=== PATIENT | female | born 1995 | race Caucasian/White ===

== ENCOUNTER 2025-01-10 15:57 | Emergency (ER) | payer BC, SELFPAY ==
[2025-01-10 16:23] VITALS: BP 137/78; PULSE 85; RESP 16; TEMP 36.4; O2SAT 100
--- NOTE | 2025-01-10 16:25 | ED.EAR ---
HPI - Ear Problem General Chief complaint: Ear Stated complaint: right ear pain Source: patient and RN notes reviewed Mode of arrival: ambulatory Limitations: no limitations History of Present Illness HPI Narrative: 29-year-old female presents [facility] complaining of right ear pain for 4 days. Patient reports he was recently treated for otitis media to her right ear through her PCP and was prescribed a Medrol Dosepak and Z-Mic. Patient completed medicine and reports having ear pain returning to her right side. Patient reports also feeling like there is fluid behind her right ear. Patient denies any other upper respiratory symptoms. Patient denies any fevers, chills, body aches, dizziness, or any other symptoms. Patient says she has been having frequent ear problems and sinus issues and is supposed to see an ENT in January. Patient takes daily allergy medicines and nasal spray to help with her symptoms as well. Related Data Home Medications Medication Instructions Recorded Confirmed Last Taken Type propranolol 10 mg tablet mg 01/10/25 Unknown History Allergies Allergy/AdvReac Type Severity Reaction Status Date / Time Penicillins Allergy Intermediate Hives Verified 01/10/25 16:18 Review of Systems Review of Systems: CONSTITUTIONAL: Denies fever, chills, body aches, or sweats. EYES: Denies visual changes, redness, or discharge. ENT: Denies rhinorrhea, congestion, sore throat. Positive for otalgia. CARDIOVASCULAR: Denies chest pain, palpitations, or edema. RESPIRATORY: Denies cough or dyspnea. GASTROINTESTINAL: Denies abdominal pain, nausea, vomiting, or diarrhea. GENITOURINARY: Denies dysuria or hematuria. SKIN: Denies rash or itching. MUSCULOSKELETAL: Denies back pain, joint pain, or myalgia. NEUROLOGIC: Denies headache, numbness, or weakness. PSYCHIATRIC: Denies anxiety or depression. All other systems reviewed are negative, except as documented in HPI. PMFSH Comments At the time of my signature, I reviewed and agree with the nursing past medical, surgical, social, and family history. There is no relevant family history pertinent to the patient complaint. Exam Narrative: GENERAL: This is a well-nourished, well-developed adult, in no apparent distress. They are non ill-appearing, nontoxic appearing. HEAD: normocephalic, atraumatic. EYES: Sclera clear/white. Conjunctiva normal. Vision is grossly intact. Extraocular movements intact EARS: External ears normal, auditory canals clear and without drainage, TMs normal without perforation. Hearing grossly intact. NOSE: External nose normal with no obvious nasal discharge, nasal turbinates without redness, no rhinorrhea. THROAT: Mucous membranes moist, posterior pharynx clear, without erythema or swelling. Uvula midline. NECK: Neck supple, non-tender without lymphadenopathy, masses or thyromegaly. CARDIOVASCULAR: Regular rate and rhythm without murmurs, gallops, or rubs. RESPIRATORY: Clear to auscultation. Breath sounds equal bilaterally. No wheezes, rales, or rhonchi. SKIN: warm, Dry, intact with no suspicious lesions or rash, good texture and turgor. NEURO: awake, alert, and oriented to person, place and time. There were no obvious focal neurologic abnormalities. EXTREMITIES: No joint tenderness, effusion, or edema noted. BACK: Nontender without deformity. No CVA tenderness. Course Course Emergency Course: Portions of this record may have been created with voice recognition software Level of Care: Express [facility] Visit Vital Signs Vital signs: Vital Signs Temperature 97.5 F L 01/10/25 16:23 Pulse Rate 85 01/10/25 16:23 Respiratory Rate 16 01/10/25 16:23 Blood Pressure 137/78 01/10/25 16:23 Pulse Oximetry 100 01/10/25 16:23 Oxygen Delivery Room Air 01/10/25 16:23 Temperature 97.5 F L 01/10/25 16:23 Pulse Rate 85 01/10/25 16:23 Respiratory Rate 16 01/10/25 16:23 Blood Pressure 137/78 01/10/25 16:23 Pulse Oximetry 100 01/10/25 16:23 Oxygen Delivery Room Air 01/10/25 16:23 Reviewed Medical Decision Making MDM Narrative Medical decision making narrative: It appears patient's right ear infection has resolved completely. No evidence of infection or chronic effusion to right TM. Advised patient to follow-up with ENT. Discussed physical exam findings. Advised supportive measures and signs/symptoms to go to the ER. Pt is appropriate for outpt treatment and f/u. Vital Signs Vital Signs: Vital Signs Temperature 97.5 F L 01/10/25 16:23 Pulse Rate 85 01/10/25 16:23 Respiratory Rate 16 01/10/25 16:23 Blood Pressure 137/78 01/10/25 16:23 Pulse Oximetry 100 01/10/25 16:23 Oxygen Delivery Room Air 01/10/25 16:23 Temperature 97.5 F L 01/10/25 16:23 Pulse Rate 85 01/10/25 16:23 Respiratory Rate 16 01/10/25 16:23 Blood Pressure 137/78 01/10/25 16:23 Pulse Oximetry 100 01/10/25 16:23 Oxygen Delivery Room Air 01/10/25 16:23 Critical Care Time Critical Care Time Critical Care Time: No Discharge Plan Discharge Clinical Impression: Ear pain, right Patient Disposition: Home Condition: Stable Instructions: Earache (ED) Additional Instructions: There is no evidence of infection to ear. You may take Tylenol or ibuprofen as needed for pain. Continue using your Flonase and Zyrtec for congestion. You may consider using azelastine or cromolyn nasal spray to help with congestion and allergy symptoms. You may do sinus rinses 3 times a day with saline packet that luke warm distilled water. Follow-up with ENT in January as scheduled. Follow-up with PCP in 7-10 days. If you develop fevers, discharge, worsening pain, or any other concerns return to [facility] go to the ER. Patient Language: Salvadorean Prescriptions: No Action propranolol 10 mg tablet Follow-up/Referrals: UNKNOWN,DOCTOR [Primary Care Provider] - Time of Disposition: 16:28
== END 2025-01-10 16:33 | disposition home or self-care (01) ==
DX: H92.01 Otalgia, right ear (principal)
CPT/HCPCS: 99202; G0463

== ENCOUNTER 2025-05-07 16:32 | Emergency (ER) | payer BC, SELFPAY ==
[2025-05-07 16:39] VITALS: BP 142/85; PULSE 95; RESP 20; TEMP 36.7; O2SAT 100
[2025-05-07 16:54] LABS: EDSTREPNEGPOS1 Negative (Negative)
[2025-05-07 16:57] LABS: EDCOVIDSCREEN Negative (Negative); EDINFLUASCREEN Negative (Negative); EDINFLUBSCREEN Negative (Negative)
--- OUTSIDE RECORDS SUMMARY | 2025-05-07 17:20 | XMS_ITS | Patient Health Record ---
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 Instructor Name Role Phone ARNOLD BAEZA [phone] Allergies Allergen (clinical drug ingredient) Drug/Non Drug Allergy documented on EMR Reaction Allergy Type Onset Date Status Rocephin Unknown Drug Allergy Active Penicillin Unknown Drug Allergy Active Reason For Referral No Information Medications Medication SIG (Take, Route, Frequency, Duration) Notes Start Date End Date Status Quetiapine Fumarate 50 MG 1 tablet at be dtime Orally Once a day Active Propranolol HCl 10 MG 1 tablet Orally Once a day Active BuPROPion HCl Active Azelastine & Fluticasone Active Aripiprazole 2 MG 1 tablet Orally Once a day Active Sertraline HCl 200 MG 1 capsule Orally O nce a day Active Social History Tobacco Use: Social History Observation Description Date Details (start date - stop date) Never Smoker NA - NA Tobacco Status: Question Answer Notes Patient is a never smoker Plan Of Treatment No Information Insurance Providers Payer Name Payer Address Payer Phone Subscriber Number Group Number Insured Name Patient Relationship to Insured Coverage Start Date Coverage End Date [employer] [address] [place], [place] [id number] NATIVIDADENRIQUETA Self - patient is the insured Medical (General) History Medical History History ICD Code Mitral valve prolapse High cholesterol Surgical History Surgery Date(Month/Year) section ([id number]) 2020 Excision of fibroadenoma of breast (6999 [id number]) 2012 Hospitalization History Reason Date(Month/Year) see above
--- NOTE | 2025-05-07 17:28 | ED.GENADULT ---
HPI - General Adult General Chief complaint: Upper Respiratory Infection Stated complaint: Sore Throat/Nasal Congestion/Vomiting Source: patient Mode of arrival: ambulatory Limitations: no limitations History of Present Illness HPI narrative: Patient presents for evaluation of sick symptoms for last 2 days. Symptoms include sore throat, bilateral otalgia, sinus congestion, clear rhinorrhea, and cough. Today she had one episode of vomiting. No fever, chills, shortness of breath or diarrhea. She has not been taking any medications to assist with her symptoms. 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 She does not smoke. She has had ear infections in the past and this feels similar. Related Data Home Medications ?Medication ?Instructions ?Recorded ?Confirmed ?Last Taken ?Type propranolol 10 mg tablet mg 01/10/25 Unknown History albuterol sulfate 90 mcg/actuation inhalation 05/07/25 Unknown History aerosol inhaler (Ventolin HFA) aripiprazole 10 mg tablet mg 05/07/25 Unknown History atogepant 60 mg tablet (Qulipta) mg 05/07/25 Unknown History atorvastatin 10 mg tablet mg 05/07/25 Unknown History beclomethasone dipropionate 80 inhalation 05/07/25 Unknown History mcg/actuation HFA breath activated aerosol (Qvar RediHaler) escitalopram oxalate 20 mg tablet mg 05/07/25 Unknown History topiramate 100 mg tablet mg 05/07/25 Unknown History trazodone 50 mg tablet mg 05/07/25 Unknown History Allergies Allergy/AdvReac Type Severity Reaction Status Date / Time Penicillins Allergy Intermediate Hives Verified 05/07/25 16:42 Review of Systems Review of Systems: CONSTITUTIONAL: Denies fever, chills, or sweats. EYES: Denies visual changes, redness, or discharge. ENT: Reports sinus congestion, clear nasal drainage, sore throat, bilateral otalgia CARDIOVASCULAR: Denies chest pain, palpitations, or edema. RESPIRATORY: Reports cough. Denies shortness of breath. GASTROINTESTINAL: Denies abdominal pain, nausea, vomiting, or diarrhea. GENITOURINARY: Denies dysuria or hematuria. SKIN: Denies rash or itching. MUSCULOSKELETAL: Denies back pain, joint pain, or myalgia. NEUROLOGIC: Denies headache, numbness, dizziness, or weakness. PSYCHIATRIC: Denies anxiety or depression. 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 HEAD: Normocephalic, atraumatic. EYES: PERRLA and EOMI. ENT: Nares clear, no rhinorrhea or epistaxis. Mucous membranes moist. Oropharynx without tonsillar hypertrophy exudate or other lesions. There is scarring of both tympanic membranes. Right tympanic membrane is erythematous with an effusion present NECK: Supple. No adenopathy or masses. No carotid bruits or JVD CHEST: Clear to auscultation. No respiratory distress. No wheezes rales or rhonchi HEART: Regular rate and rhythm. No murmur heard. Normal peripheral pulses. ABDOMEN: Soft, nontender, nondistended, normal active bowel sounds. EXTREMITIES: Normal range of motion. No edema. SKIN: Warm, dry, no rash. NEURO: No focal deficits. Alert and oriented x3. PSYCH: Normal mood and affect. Course Course Emergency Course: This is a 29-year-old female who presented for evaluation of sick symptoms. Strep, COVID, influenza were negative. She has evidence of otitis media on exam. Will discharge with cefdinir. She indicates she can tolerate cephalosporins. She ready has Zofran at home. Follow up with primary provider. Go to the ER for worsening symptoms. Patient in agreement with plan of care. Level of Care: Express Care Visit Vital Signs Vital signs: Vital Signs Temperature 36.7 C 05/07/25 16:39 Pulse Rate 95 05/07/25 16:39 Respiratory Rate 20 05/07/25 16:39 Blood Pressure 142/85 H 05/07/25 16:39 Pulse Oximetry 100 05/07/25 16:39 Oxygen Delivery Room Air 05/07/25 16:39 Temperature 36.7 C 05/07/25 16:39 Pulse Rate 95 05/07/25 16:39 Respiratory Rate 20 05/07/25 16:39 Blood Pressure 142/85 H 05/07/25 16:39 Pulse Oximetry 100 05/07/25 16:39 Oxygen Delivery Room Air 05/07/25 16:39 Medical Decision Making Vital Signs Vital Signs: Vital Signs Temperature 36.7 C 05/07/25 16:39 Pulse Rate 95 05/07/25 16:39 Respiratory Rate 20 05/07/25 16:39 Blood Pressure 142/85 H 05/07/25 16:39 Pulse Oximetry 100 05/07/25 16:39 Oxygen Delivery Room Air 05/07/25 16:39 Temperature 36.7 C 05/07/25 16:39 Pulse Rate 95 05/07/25 16:39 Respiratory Rate 05/07/25 16:39 Blood Pressure 142/85 H 05/07/25 16:39 Pulse Oximetry 100 05/07/25 16:39 Oxygen Delivery Room Air 05/07/25 16:39 Lab Data Labs: Lab Results 05/07/25 05/07/25 Range/Units 16:50 16:53 POC Influenza A Ag Negative (Negative) POC Influenza B Ag Negative (Negative) POC SARS CoV-2 Ag Negative (Negative) POC Grp A Strep Screen Negative (Negative) Discharge Plan Discharge Clinical Impression: Otitis media Patient Disposition: Home Condition: Stable Instructions: Antibiotic Form, Ear Infection (ED) Patient Language: [place] Citizen Prescriptions: New cefdinir 300 mg capsule 300 mg PO Q12H Qty: 20 0RF No Action trazodone 50 mg tablet atorvastatin 10 mg tablet albuterol sulfate [Ventolin HFA] 90 mcg/actuation HFA aerosol inhaler INHALATION topiramate 100 mg tablet escitalopram oxalate 20 mg tablet aripiprazole 10 mg tablet Qvar RediHaler 80 mcg/actuation HFA aerosol breath activated INHALATION Qulipta 60 mg tablet propranolol 10 mg tablet Follow-up/Referrals: Yaniv Cid MD [Physician, Family Practice] Stand Alone Forms: Work/School Release IP Time of Disposition: 17:27
== END 2025-05-07 17:34 | disposition home or self-care (01) ==
PROVIDERS: Emergency Provider Nurse Practitioner
DX: H66.91 Otitis media, unspecified, right ear (principal); Z20.822 Contact with and (suspected) exposure to COVID-19; E78.5 Hyperlipidemia, unspecified; F41.9 Anxiety disorder, unspecified; F32.A Depression, unspecified
CPT/HCPCS: 87081; 87426; 87804; 87880; 99213; G0463

== ENCOUNTER 2025-07-01 16:24 | Emergency (ER) | payer BC, SELFPAY ==
--- NOTE | ~2025-07-01 | XR_ITS ---
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 COMPARISON: No comparisons available. Findings: No acute fracture or malalignment. No significant degenerative changes. Soft tissues unremarkable. Impression: No acute fracture or malalignment. Reviewed, dictated and finalized at location P. ME PL[employer] HELPER Impression: No acute fracture or malalignment.
--- OUTSIDE RECORDS SUMMARY | 2025-07-01 16:28 | XMS_ITS | Patient Health Record ---
Author Organization [facility] Andreas silver[facility] Billing Info Address [address] [place] [address] [place] [address] Care Team Providers Care Creative/Art Director Name Role Phone ARNOLD BAEZA [phone] Allergies Allergen (clinical drug ingredient) Drug/Non Drug [...] Insured Coverage Start Date Coverage End Date [place] P[place] [address] [place], [place] [id number] NATIVIDADENRIQUETA Self - patient is the insured Medical (General) History Medical History History ICD Code Mitral valve prolapse High cholesterol Surgical History Surgery Date(Month/Year) section ([id number]) 2020 Excision of fibroadenoma of breast (6999 0006) 2012 Hospitalization History Reason Date(Month/Year) see above
[2025-07-01 16:38] VITALS: BP 137/70; PULSE 73; RESP 20; TEMP 36.6; O2SAT 98
--- NOTE | 2025-07-01 17:23 | ED.LOWEXIN ---
HPI - Extremity Injury (Lower) General Chief Complaint: Extremity Injury, Lower Stated Complaint: L foot xray Time Seen by Provider: 07/01/25 17:23 Source: patient, RN notes reviewed and old records reviewed Mode of arrival: ambulatory Limitations: no limitations History of Present Illness HPI Narrative: 29-year-old female presents to the [facility] requesting a foot x-ray. Reports pain to the lateral foot. Tenderness over metatarsals for 5. Denies injury No swelling. Full range of motion. Positive pedal pulse. Related Data Home Medications ?Medication ?Instructions ?Recorded ?Confirmed ?Last Taken ?Type propranolol 10 mg tablet mg 01/10/25 Unknown History albuterol sulfate 90 mcg/actuation inhalation 05/07/25 Unknown History aerosol inhaler (Ventolin HFA) aripiprazole 10 mg tablet mg 05/07/25 Unknown History atorvastatin 10 mg tablet mg 05/07/25 Unknown History beclomethasone dipropionate 80 inhalation 05/07/25 Unknown History mcg/actuation HFA breath activated aerosol (Qvar RediHaler) escitalopram oxalate 20 mg tablet mg 05/07/25 Unknown History topiramate 100 mg tablet mg 05/07/25 Unknown History trazodone 50 mg tablet mg 05/07/25 Unknown History aripiprazole 2 mg tablet mg 07/01/25 Unknown History Allergies Allergy/AdvReac Type Severity Reaction Status Date / Time Penicillins Allergy Intermediate Hives Verified 07/01/25 16:47 Review of Systems Review of Systems: All systems reviewed & are unremarkable except as noted in HPI and below Constitutional: Constitutional: Reports no additional constitutional complaints ENT: Reports system reviewed and no additional complaints, except as documented Cardiovascular: Cardiovascular: Reports no additional cardiovascular complaints, Denies chest pain and Denies dyspnea Musculoskeletal: Musculoskeletal: Reports as per HPI Integumentary/Breasts: Skin/Breast: Reports system reviewed and no additional complaints, except as docu PMFSH Past Medical History Medical History Hyperlipidemia Depression Anxiety Surgical History Surgical History History of History of dilatation and curettage Family History Family History Mother Family history non-contributory Social History Social History Smoking status: Never smoker Substance use: never 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 There is no relevant family history pertinent to the patient complaint. Exam Const: General: cooperative, healthy appearing, comfortable, no acute distress, well developed, alert and well nourished Nutritional Appearance: well nourished and obese Orientation/consciousness: patient oriented x3 Limitations: no limitations HENMT: Head: normal to inspection Eyes: General: appearance normal, both eyes and all related structures Alignment and Position: alignment normal Neck: Neck: normal visual inspection, full ROM, no lymphadenopathy and no meningeal signs Chest: Chest palpation & inspection: normal inspection of the chest Resp: Effort & Inspection: normal respiratory effort and able to speak in complete sentences Cardio: Rate: regular rate Skin: General skin exam: normal color and no rashes or lesions noted Neuro: General: patient oriented x3, gait normal, moves all extremities and no meningeal signs Cognition (Neuro): normal cognition Speech: normal speech Gait exam (Neuro): Normal gait present Extrem: General: normal to inspection, full ROM, capillary refill normal and normal gait Left lower extremity: full ROM, normal capillary refill and foot Details: tenderness, toes with normal ROM and no edema; no foreign bodies Ankle/foot/toe images:  1. Tenderness without swelling. Positive pedal pulse. Sensation intact. Able to move toes. Capillary refill under 2 seconds Psych: Appearance: grossly normal and well kempt Mental Status: mental status grossly normal Speech and movement: Normal speech and movement present and Clear speech present Affect: normal affect Attitude: cooperative Course Course Level of Care: Express Care Visit Vital Signs Vital signs: Vital Signs Temperature 97.8 F 07/01/25 16:38 Pulse Rate 73 07/01/25 16:38 Respiratory Rate 20 07/01/25 16:38 Blood Pressure 137/70 07/01/25 16:38 Pulse Oximetry 98 07/01/25 16:38 Oxygen Delivery Room Air 07/01/25 16:38 Temperature 97.8 F 07/01/25 16:38 Pulse Rate 73 07/01/25 16:38 Respiratory Rate 20 07/01/25 16:38 Blood Pressure 137/70 07/01/25 16:38 Pulse Oximetry 98 07/01/25 16:38 Oxygen Delivery Room Air 07/01/25 16:38 Reviewed MDM - Extremity Injury (Lower) MDM Narrative Medical decision making narrative: Patient with foot pain for several days. X-ray neck No acute findings noted on exam Patient is appropriate for outpatient treatment with close follow-up Discharge instructions reviewed with patient, as well as provided in writing per nursing staff. The instructions also include specific and strict return/GO TO THE ER as well as f/u information. All questions have been answered, and the patient deny any further questions with discharge and discharge plan. Some parts of this dictation were generated by voice recognition software and may contain typographical and/or grammatical inaccuracies. Differential Diagnosis Differential diagnosis: Likely ankle sprain and strain and other (Foot sprain, strain, arthritis, fracture) Critical Care Time Critical Care Time Critical Care Time: No Discharge Plan Discharge Clinical Impression: Acute pain of left foot Patient Disposition: Home Condition: Stable Instructions: Antibiotic Form, Foot Sprain (ED) Additional Instructions: Your Xray did not show a fracture. Wear good supportive shoes at all times. Ice should be applied to help reduce swelling. It can be used for 20 to 30 minutes, every 2-3 hours while awake. Do not apply ice directly to your skin. You can alternate ibuprofen 600mg and Tylenol 650mg every 4 hours as needed for pain Please schedule a follow-up visit with your personal physician for further evaluation and treatment within 2 weeks especially if symptoms persist. For new or worsening symptoms go directly to the emergency room Patient Language: Malagasy Prescriptions: No Action trazodone 50 mg tablet atorvastatin 10 mg tablet albuterol sulfate [Ventolin HFA] 90 mcg/actuation HFA aerosol inhaler INHALATION topiramate 100 mg tablet escitalopram oxalate 20 mg tablet aripiprazole 10 mg tablet Qvar RediHaler 80 mcg/actuation HFA aerosol breath activated INHALATION cefdinir 300 mg capsule 300 mg PO Q12H Qty: 20 0RF aripiprazole 2 mg tablet propranolol 10 mg tablet Follow-up/Referrals: UNKNOWN,DOCTOR [Primary Care Provider] Stand Alone Forms: Work/School Release IP Time of Disposition: 17:27
== END 2025-07-01 17:32 | disposition home or self-care (01) ==
PROVIDERS: Emergency Provider Nurse Practitioner
DX: M79.672 Pain in left foot (principal); E78.5 Hyperlipidemia, unspecified; F41.9 Anxiety disorder, unspecified; F32.A Depression, unspecified
CPT/HCPCS: 73630; 99213; G0463